=== PATIENT | male | born 1975 | race African-American/Black ===

== ENCOUNTER 2019-09-11 15:35 | Emergency (ER) | payer MEDICAID ==
[~2019-09-11] VITALS: Ht 193 cm; Wt 150.0 kg
[~2019-09-11 15:35] MED LIST: GLYB2.5T4 PO; LISI-600 PO; METF500T PO
[2019-09-11] MEDS ORDERED: HYDROcodone/acetaminophen 10/325mg tab PO STA (16:14)
[2019-09-11] MEDS ORDERED: ibuprofen 200mg tablet PO ONE (16:15)
[2019-09-11] MEDS ORDERED: acetaminophen 325mg tablet PO ONE (16:15)
[2019-09-11] MEDS ORDERED: ondansetron/PF 4mg/2ml inj IV ONE (17:00)
[2019-09-11] MEDS ORDERED: morphine 4 MG/ML inj SYRINge IV ONE ×2 (17:00→17:45)
[2019-09-11] MEDS ORDERED: fentaNYL/PF 50MCG/1 ML 2ML syringe IV ONE (18:20)
[2019-09-11] MEDS ORDERED: HYDR-4353 PO (19:11)
[2019-09-11] MEDS ORDERED: ONDA4TAB6 PO (19:11)
[2019-09-11 19:46] VITALS: BP 141/89
== END 2019-09-11 19:41 | disposition home or self-care (01) ==
LOC: ER 15:36
DX: S52.592A Other fractures of lower end of left radius, initial encounter for closed fracture (principal); S52.692A Other fracture of lower end of left ulna, initial encounter for closed fracture; I10 Essential (primary) hypertension; E11.9 Type 2 diabetes mellitus without complications; Z79.899 Other long term (current) drug therapy; V89.2XXA Person injured in unspecified motor-vehicle accident, traffic, initial encounter; Y93.89 Activity, other specified; Y92.89 Other specified places as the place of occurrence of the external cause; Y99.8 Other external cause status
CPT/HCPCS: 29125; 73090; 96374; 96375; 96376; 99285; J2270; J2405; J3010